=== PATIENT | male | born 1995 | race Caucasian/White ===

== ENCOUNTER 2017-02-03 16:29 | Emergency (ER) | payer OTHER ==
[~2017-02-03] VITALS: Ht 195.5 cm; Wt 67.1 kg
[~2017-02-03 16:29] MED LIST: ALBUTEROL0.09 MG/A2 IH; AMOXICILLIN500 MG PO; ATARAX25 MG PO; AUGMENTIN 400 M1 CTB PO; AUGMENTIN 875 M1 TAB PO; BACTROBAN OINT22 GM PO; BENADRYL25 MG PO; CIPROFLOXACIN500 MG PO; DILANTIN KAPSE100 MG PO; ELIMITE 5%60 GM PO; EPI EZ PEN1 MG/ML IM; IBU800 MG PO; LORAZEPAM1 MG PO; MEDROL DOSEPAK4 MG PO; MOTRIN800 MG PO; NAPROSYN500 MG PO; ONDANSETRON4 MG PO; PREDNICOT20 MG PO; SINEMET 25-100M1 TAB PO
[2017-02-03] MEDS ORDERED: AMOXICILLIN500 M2 PO (17:12)
[2017-02-03] MEDS ORDERED: NAPROSYN500 MG PO (17:12)
== END 2017-02-03 21:56 | disposition home or self-care (01) ==
LOC: ED 16:29
DX: K08.89 Other specified disorders of teeth and supporting structures (principal); F17.200 Nicotine dependence, unspecified, uncomplicated; Z88.6 Allergy status to analgesic agent; Z88.8 Allergy status to other drugs, medicaments and biological substances; Z91.030 Bee allergy status

== ENCOUNTER 2017-05-24 18:28 | Emergency (ER) | payer OTHER ==
[~2017-05-24] VITALS: Ht 195.5 cm; Wt 67.1 kg
[~2017-05-24 18:28] MED LIST changes: +AMOXICILLIN500 M2 PO
[2017-05-24] MEDS ORDERED: AMOXICILLIN500 M2 PO (18:56)
== END 2017-05-24 21:35 | disposition home or self-care (01) ==
LOC: ED 18:28
DX: K08.89 Other specified disorders of teeth and supporting structures (principal); F17.200 Nicotine dependence, unspecified, uncomplicated; Z91.030 Bee allergy status; Z88.8 Allergy status to other drugs, medicaments and biological substances; Z88.6 Allergy status to analgesic agent

== ENCOUNTER 2017-07-02 19:44 | Emergency (ER) | payer OTHER ==
[~2017-07-02] VITALS: Ht 198.1 cm; Wt 67.1 kg
[2017-07-02] MEDS ORDERED: SEPTDS PO (20:14)
== END 2017-07-02 21:55 | disposition home or self-care (01) ==
LOC: ED 19:44
DX: K04.7 Periapical abscess without sinus (principal); F17.200 Nicotine dependence, unspecified, uncomplicated; Z91.030 Bee allergy status; Z88.8 Allergy status to other drugs, medicaments and biological substances

== ENCOUNTER 2017-11-08 18:56 | Emergency (ER) | payer OTHER ==
[~2017-11-08] VITALS: Wt 66.7 kg
[~2017-11-08 18:56] MED LIST changes: +SEPTDS PO
[2017-11-08] MEDS ORDERED: AMOXICILLIN500 M2 PO (19:57)
[2017-11-08] MEDS ORDERED: ZOFRAN ODT4 MG SL (19:58)
== END 2017-11-08 20:06 | disposition home or self-care (01) ==
LOC: ED 18:56
DX: J02.9 Acute pharyngitis, unspecified (principal); K08.89 Other specified disorders of teeth and supporting structures; F17.200 Nicotine dependence, unspecified, uncomplicated; Z91.030 Bee allergy status; Z88.6 Allergy status to analgesic agent; Z88.8 Allergy status to other drugs, medicaments and biological substances

== ENCOUNTER 2018-11-01 14:43 | Emergency (ER) | payer OTHER ==
[~2018-11-01] VITALS: Ht 203.2 cm; Wt 67.1 kg
[~2018-11-01 14:43] MED LIST changes: +ZOFRAN ODT4 MG SL
[2018-11-01] MEDS ORDERED: CEPHALEXIN500 M1 PO (15:06)
== END 2018-11-01 15:11 | disposition home or self-care (01) ==
LOC: ED 14:43
DX: K02.9 Dental caries, unspecified (principal); Z91.030 Bee allergy status; Z88.8 Allergy status to other drugs, medicaments and biological substances; Z88.6 Allergy status to analgesic agent

== ENCOUNTER 2019-12-18 20:53 | Emergency (ER) | payer OTHER ==
[~2019-12-18] VITALS: Ht 198.1 cm; Wt 67.1 kg
[~2019-12-18 20:53] MED LIST changes: +CEPHALEXIN500 M1 PO
[2019-12-18] MEDS ORDERED: Motrin,Rufen800 MG PO (21:15)
[2019-12-18] MEDS ORDERED: SEPTDS PO (21:15)
== END 2019-12-18 21:21 | disposition home or self-care (01) ==
LOC: ED 20:53
DX: K08.89 Other specified disorders of teeth and supporting structures (principal); Z79.899 Other long term (current) drug therapy

== ENCOUNTER 2020-01-21 12:55 | Emergency (ER) | payer OTHER ==
[~2020-01-21] VITALS: Ht 187.9 cm; Wt 63.5 kg
[~2020-01-21 12:55] MED LIST changes: +Motrin,Rufen800 MG PO
[2020-01-21] MEDS ORDERED: SEPTDS PO (13:50)
== END 2020-01-21 13:27 | disposition home or self-care (01) ==
LOC: ED 12:55
DX: K02.9 Dental caries, unspecified (principal); K04.7 Periapical abscess without sinus; K01.1 Impacted teeth; Z91.030 Bee allergy status; Z88.8 Allergy status to other drugs, medicaments and biological substances